=== PATIENT | female | born 1940 | race African-American/Black ===

== ENCOUNTER 2024-10-17 13:27 | Emergency (ER) | payer OTHER, MEDICARE ==
--- OUTSIDE RECORDS SUMMARY | 2024-10-17 13:30 | XMS REPORT | Clinical Summary ---
Author Name Unknown Organization [facility] Address [address] [place] [address] Care Team Providers Care Cake Winder Name Role Phone Brittany Eduardo MD Primary Care Provider [phone] Farhad Corrigan MD Unavailable [phone] Farhad Corrigan MD Unavailable Isis Liang MD Unavailable Brittany Eduardo MD Unavailable [phone] Allergies Active Allergy Reactions Criticality Noted Date Comments Adhesive Tape-Silicones 11/17/1999 Penicillin G 11/17/1999 Penicillins Rash Low 11/30/2015 Medications aspirin 81 mg EC tablet Take 81 mg by mouth daily. Active omega-3 fatty acids-vitamin E (FISH OIL) 1,000 mg cap Take 2 capsules by mouth twice daily. Active sitaGLIPtin-met FORMIN (JANUMET) 50-500 mg per tablet Take 1 tablet by mouth twice daily. Active Ca cmb no.5-[id number]-[id number]- H60-zzta (VITAMIN D-3 WITH ALOE) 120-1,000-10 mg-unit-mg tab Take 1 capsule by mouth daily. Active clopidogrel (PLAVIX) 75 mg tablet Take 1 tablet by mouth daily. 03/18/2016 Active metFORMIN (GLUCOPHAGE) 500 mg tablet Take 1 tablet by mouth daily. 12/29/2015 Active JANUMET 50-500 mg per tablet Take 1 tablet by mouth 2 (two) times a day with meals. 1 03/17/2016 Active amiodarone (PACERONE) 200 mg tablet Take 1 tablet by mouth daily. 3 pm 02/11/2016 Active losartan (COZAAR) 100 mg tablet Take 100 mg by mouth daily. Active atorvastatin (LIPITOR) 40 mg tablet Take 40 mg by mouth. Active nebivolol (BYSTOLIC) 10 mg tablet 20 mg. 06/22/2016 Active Active Problems Problem Noted Date Diagnosed Date Personal history of other malignant neoplasm of skin 01/11/2017 Social History Tobacco Use Types Packs/Day Years Used Date Smoking Tobacco: Never Assessed Comments Unknown Sex and Gender Information Value Date Recorded Sex Assigned at Not on file Legal Sex Female 4:53 PM P[employer]ER [employer] Gender Identity Not on file Sexual Orientation Not on file Plan of Treatment Health Maintenance Due Date Last Done Comments Pneumococcal Vaccine: 50+ Years (1 of - PCV) 99 COVID-19 Vaccine ( - 2023- season) 2024 Influenza Vaccine (#1) 2024 Insurance MEDICARE PART A AND B MEDICARE PART A AND B MEDICARE PART A AND B Care Teams Cake Winder Relationship Specialty Start Date End Date Brittany Eduardo MD [address] [place] [phone] [email or web address] PCP - General 10/08/15 Farhad Corrigan MD [address] [place] [phone] [email or web address] PCP - External Referring 08/12/14 Farhad Corrigan MD [address] [place] [phone] [email or web address] PCP - External Follow Up A 08/12/14 Isis Liang MD [address] [place] [address] [id number] [email or web address] [email or web address] 10/15/15 [place] [address] [place] [phone] [email or web address] [email or web address] 10/15/15
--- NOTE | 2024-10-17 15:59 | RAD REPORT ---
EXAM: CT brain without contrast HISTORY: Headache;Trauma COMPARISON: None TECHNIQUE: Multiple contiguous axial images were obtained and a CT of the brain without contrast. Sag ittal and coronal reformats were performed. FINDINGS: Small volume hyperdense subarachnoid hemorrhage opacifying the left frontal parasagittal sulci. No evidence of hydrocephalus, intraparenchymal hemorrhage, or extra-axial fluid collection. The brain is normal in morphology. The calvarium is intact. Mild to moderate mucosal thickening particularly along the right maxillary a ntrum. mastoid air cells are essentially clear. IMPRESSION: Left frontal parasagittal sulci and subarachnoid hemorrhage. No significant mass effect. THIS REPORT CONTAINS FINDINGS THAT MAY BE CRITICAL TO PATIENT CARE. The findings were verbally commun icated via telephone to FAUSTO Milan on 10/17/2024 3:55 PM. EXAM: CT of the cervical spine without contrast HISTORY: Headache;Trauma COMPARISON: None TECHNIQUE: Multiple contiguous axial images were obtained in a CT of the cervical spine without contr ast. Sagittal and coronal reformats were performed. FINDINGS: The vertebral bodies demonstrate normal height and alignment. No evidence of acute fracture or subluxation.. No degenerative changes are present. No prevertebral soft tissue swelling is seen. The posterior facets are well aligned. Normal alignment of the skull base with the cervical spine is seen. The lung apices are unremarkable. Expansile heterogeneous 2.5 cm hypodense nodule or cyst involving the mid to lower aspect of the left thyroid lobe, not fully characterized. Incidentally noted bilateral cervical ribs. IMPRESSION: No evidence of acute osseous abnormality of the cervical spine. At least 2.5 cm hypodense nodule or cyst involving the left thyroid lobe, may deserve additional ethan acterization by dedicated thyroid ultrasound if not previously performed.
[2024-10-17 16:18] LABS: Absolute Lymphocytes (CBC) 0.7 K/uL (0.7-4.9); Absolute Monocytes 0.3 K/uL (0.1-1.3); Absolute Neutrophil 4.8 K/uL (1.8-8.0); Basophils % 0.3 % (0-1.3); Eosinophils % 0.2 % (0-4.4); Hemoglobin 12.9 g/dL (12.0-15.0); Lymphocytes % 12.2 % (15.3-44.8); MCH 29.1 pg (27.0-35.0); MCHC 34.9 g/dL (32.0-36.0); MCV 83.3 fL (80-100); MPV 7.1 fL (7.6-11.3); Monocytes % 4.7 % (3.3-12.3); Neutrophils % 82.6 % (41.7-73.7); Nucleated Red Blood Cells % 0.1 % (0-0); Platelets 233 thou/uL (152-406); RBC Red Blood Cell Count 4.44 M/uL (3.86-4.86); Red Cell Distribution Width 12.9 % (12.1-15.2)
[2024-10-17] MEDS ORDERED: LEVETIRACETAM 500 MG/5 ML VIAL IV ONE (16:19)
[2024-10-17] MEDS ORDERED: NA CHLORIDE 0.9% 100 ML ONE (16:19)
--- NOTE | 2024-10-17 16:29 | ER ---
Nurse's Notes [facility] Name: Adriane Corrigan Age: 84 yrs Sex: Female : 1940 Arrival Date: 10/17/2024 Time: 13:27 Bed 12 Private MD: Diagnosis: Traumatic subarachnoid hemorrhage Presentation: 10/17 13:51 Coronavirus screen: Client denies travel out of the [place] in the last 14 days. Ebola ll1 Screen: Patient denies travel to an Ebola-affected area in the 21 days before illness onset. Mechanism of Injury: resulted from a fall. Initial Sepsis Screen: Does the patient meet any 2 criteria? No. Patient's initial sepsis screen is negative. Does the patient have a suspected source of infection? No. Patient's initial sepsis screen is negative. Risk Assessment: Do you want to hurt yourself or someone else? Patient reports no desire to harm self or others. 13:51 Method Of Arrival: Ambulatory 1 13:51 Acuity: PETER 3 ll1 13:53 Chief complaint: Patient states: Hit head and posterior L arm knocking down a 2x4 from ll1 carport today. 16:30 Onset of symptoms was October 17, 2024. ll1 Triage Assessment: 13:51 General: Appears uncomfortable, Behavior is calm, cooperative, appropriate for age. ll1 Pain: Complains of pain in L posterior shoulder. Neuro: Reports headache. Musculoskeletal: Reports pain in L posterior shoulder. Injury Description: Bruise sustained to L posterior shoulder. 16:27 Neuro: Level of Consciousness is awake, alert, obeys commands, Oriented to person, ll1 place, time, situation, Appropriate for age Sane Rn are equal bilaterally Moves all extremities. Full function. Historical: - Allergies: 13:54 PENICILLINS; ll1 - PMHx: 13:54 Hypertensive disorder; Diabetes mellitus; Hypercholesterolemia; vertigo; stroke; ll1 - PSHx: 13:54 Cholecystectomy; hysterectomy; endarectomy R; ll1 - Immunization history:: Adult Immunizations up to date. - Infectious Disease History:: Denies. - Social history:: Smoking status: Patient denies any tobacco usage or history of. Screenin:10 [facility] ED Fall Risk Assessment (Adult) History of falling in the last 3 months, ll1 including since admission No falls in past 3 months (0 pts) Confusion or Disorientation No (0 pts) Intoxicated or Sedated No (0 pts) Impaired Gait No (0 pts) Mobility Assist Device Used No (0 pt) Altered Elimination No (0 pt) Score/Fall Risk Level 0 - 2 = Low Risk Maintained a safe environment, Hourly rounding (assess needs \T\ fall precautionary measures) done. Abuse screen: Denies threats or abuse. Nutritional screening: No deficits noted. Tuberculosis screening: No symptoms or risk factors identified. Assessment: 14:22 Reassessment: No changes from previously documented assessment. Patient and/or family ll1 updated on plan of care and expected duration. Pain level reassessed. Patient is alert, oriented x 3, equal unlabored respirations, skin warm/dry/pink. 16:10 Reassessment: No changes from previously documented assessment. Patient and/or family ll1 updated on plan of care and expected duration. Pain level reassessed. Patient is alert, oriented x 3, equal unlabored respirations, skin warm/dry/pink. 16:30 Reassessment: No changes from previously documented assessment. Patient and/or family ll1 updated on plan of care and expected duration. Pain level reassessed. Patient is alert, oriented x 3, equal unlabored respirations, skin warm/dry/pink. 17:03 Reassessment: No changes from previously documented assessment. Patient and/or family ll1 updated on plan of care and expected duration. Pain level reassessed. Patient is alert, oriented x 3, equal unlabored respirations, skin warm/dry/pink. Vital Signs: 13:53 BP 169 / 65; Pulse 86; Resp 17; Temp 98.4; Pulse Ox 100% ; Weight 54.43 kg; Height 4 ll1 ft. 11 in. ; Pain 10/10; 16:17 BP 178 / 74; Pulse 89; Resp 16; Pulse Ox 100% ; ll1 17:03 BP 152 / 69; Pulse 93; Resp 16; Pulse Ox 100% on R/A; ll1 13:53 Body Mass Index 24.24 (54.43 kg, 149.86 cm) 1 13:53 Pain Scale: Adult ll1 Butler Coma Score: 13:51 Eye Response: spontaneous(4). Motor Response: obeys commands(6). Verbal Response: ll1 oriented(5). Total: 15. 15:22 Eye Response: spontaneous(4). Motor Response: obeys commands(6). Verbal Response: kb oriented(5). Total: 15. ED Course: 13:31 Patient arrived in ED. im 13:32 Vidya Berrios FNP-C [facility]. kb 13:32 Prasanth Grimes MD is Attending Physician. kb 13:51 Arm band placed on. ll1 13:52 Triage completed. ll1 14:22 Patient placed in an exam room, on a stretcher. ll1 14:25 CT Head C Spine In Process Unspecified. EDMS 15:07 Humerus Left XRAY In Process Unspecified. EDMS 16:11 Patient has correct armband on for positive identification. Bed in low position. Call ll1 light in reach. Provided Education on: ER procedures and process. Client placed on continuous cardiac and pulse oximetry monitoring. NIBP monitoring applied. 16:17 Carson Srinivasan, JACKIE is Primary Nurse. ll1 16:18 Initial lab(s) drawn, by me, sent to lab. Missed attempt(s): 22 gauge in right ll1 antecubital area. Bleeding controlled, band aid applied, catheter tip intact. 16:20 Inserted saline lock: 22 gauge in left antecubital area, using aseptic technique. ll1 Flushed with 10 mL NS. 16:26 No provider procedures requiring assistance completed. ll1 16:30 Patient transferred, IV remains in place. ll1 Administered Medications: 16:25 Drug: Keppra IV 1000 mg IV at calculated rate once Route: IV; Rate: calculated rate; ll1 Site: left antecubital; 17:04 Follow up: Response: No adverse reaction; IV Status: Completed infusion; IV Intake: ll1 1000ml Medication: 16:11 VIS not applicable for this client. ll1 Intake: 17:04 IV: 1000ml; Total: 1000ml. ll1 Outcome: 16:27 Transferred by ground EMS to [facility], Transfer form completed. Note: marcelina Hernández RN in [place] ED 16:27 Condition: stable 16:27 Instructed on the need for transfer, 16:28 ER care complete, transfer ordered by . kb 17:12 Patient left the ED. ld1 Signatures: Dispatcher [employer] EDMS Vidya Berrios FNP-C SUPPLY CHAIN BUSINESS ANALYST-Ckb Carson Srinivasan, RN RN ll1 Karo Avalos RN RN ld1 Paz Humphrey Corrections: (The following items were deleted from the chart) 13:58 13:53 BP 169 / 65; Pulse 86bpm; Resp 17bpm; Pulse Ox 100%; 54.43 kg; Height 4 ft. 11 ll1 in.; BMI: 24.2; Pain 10, Adult; ll1
--- NOTE | 2024-10-17 16:29 | EDPHYS ---
Physician Documentation [facility] Name: Adriane Corrigan Age: 84 yrs Sex: Female : 1940 Arrival Date: 10/17/2024 Time: 13:27 Bed 12 Private MD: ED Physician Prasanth Grimes HPI: 10/17 15:20 This 84 yrs old Black Female presents to ER via Ambulatory with complaints of Head kb Injury-Adult. 15:20 Pt is an 84 year old female who presents after falling just before 1130 today. States kb she was swinging a 2x4 trying to take down her carport when she lost her balance and fell. Reports hitting back of head on the concrete edge of her flowerbed. Reports LOC that was for a short time. Takes xarelto and aspirin. . Historical: - Allergies: 13:54 PENICILLINS; ll1 - PMHx: 13:54 Hypertensive disorder; Diabetes mellitus; Hypercholesterolemia; vertigo; stroke; ll1 - PSHx: 13:54 Cholecystectomy; hysterectomy; endarectomy R; ll1 - Immunization history:: Adult Immunizations up to date. - Infectious Disease History:: Denies. - Social history:: Smoking status: Patient denies any tobacco usage or history of. ROS: 15:19 Constitutional: As per HPI kb Exam: 15:19 Constitutional: This is a well developed, well nourished patient who is awake, alert, kb and in no acute distress. Eyes: Pupils equal round and reactive to light, extra-ocular motions intact. Lids and lashes normal. Conjunctiva and sclera are non-icteric and not injected. Cornea within normal limits. Periorbital areas with no swelling, redness, or edema. ENT: Moist Mucous membranes Cardiovascular: Regular rate Respiratory: Respirations even and unlabored. No increased work of breathing. Talking in full sentences Back: No spinal tenderness. No costovertebral tenderness. Full range of motion. Skin: Warm, dry with normal turgor. Normal color. Neuro: Awake and alert, GCS 15, oriented to person, place, time, and situation. 15:19 Head/face: Noted is no obvious of injury or deformity except abrasion(s), that are mild, of the left occipital area, hematoma, that is mild, of the left occipital area, 15:19 Musculoskeletal/extremity: Extremities: grossly normal except: noted in the posterior aspect of left shoulder: abrasion, pain, ROM: intact in all extremities, Circulation is intact in all extremities. Sensation intact. Weight bearing: able to fully bear weight, Vital Signs: 13:53 BP 169 / 65; Pulse 86; Resp 17; Temp 98.4; Pulse Ox 100% ; Weight 54.43 kg; Height 4 ll1 ft. 11 in. ; Pain 10/10; 16:17 BP 178 / 74; Pulse 89; Resp 16; Pulse Ox 100% ; ll1 17:03 BP 152 / 69; Pulse 93; Resp 16; Pulse Ox 100% on R/A; ll1 13:53 Body Mass Index 24.24 (54.43 kg, 149.86 cm) ll1 13:53 Pain Scale: Adult ll1 Leonard Coma Score: 13:51 Eye Response: spontaneous(4). Motor Response: obeys commands(6). Verbal Response: ll1 oriented(5). Total: 15. 15:22 Eye Response: spontaneous(4). Motor Response: obeys commands(6). Verbal Response: kb oriented(5). Total: 15. MDM: 13:32 Medical Screening Exam initiated kb 15:22 Data reviewed: vital signs, nurses notes. kb 16:28 Differential diagnosis: Contusion of Hematoma on Intracranial bleed- Concussion kb cerebral contusion. Consideration of Admission/Observation Escalation of care including admission/observation considered. pt will be transferred to [place] for trauma. Management of patient was discussed with the following: Neurosurgeon at [facility] accepts pt for transfer under Dr Cortes. Historians other than the Patient: Family Member: sister. Counseling: I had a detailed discussion with the patient and/or guardian regarding the historical points, exam findings, and any diagnostic results supporting the discharge/admit diagnosis, lab results, radiology results, the need to transfer to another facility, [facility] does not immediately have the required specialist. 10/17 15:55 Order name: CBC with Diff; Complete Time: 16:27 kb 10/17 15:55 Order name: CMP; Complete Time: 16:40 kb 10/17 15:55 Order name: Protime (+inr); Complete Time: 16:38 kb 10/17 15:55 Order name: Ptt, Activated; Complete Time: 16:38 kb 10/17 13:53 Order name: CT Head C Spine; Complete Time: 16:00 kb 10/17 14:30 Order name: Humerus Left XRAY; Complete Time: 17:01 kb 10/17 15:55 Order name: IV Start; Complete Time: 16:02 kb Administered Medications: 16:25 Drug: Keppra IV 1000 mg IV at calculated rate once Route: IV; Rate: calculated rate; ll1 Site: left antecubital; 17:04 Follow up: Response: No adverse reaction; IV Status: Completed infusion; IV Intake: ll1 1000ml Disposition: 17:32 Co-signature as Attending Physician, Prasanth Grimes MD I reviewed the patient's care rt provided by the Advanced Practice Provider and agree with the diagnosis and treatment plan. Disposition Summary: 10/17/24 16:28 Transfer Ordered Notes: Transfer Location: [facility] kb Reason: Higher level of care kb Condition: Stable kb Problem: new kb Symptoms: are unchanged kb Accepting Physician: Dr Cortes(10/17/24 17:12) ld1 Diagnosis - Traumatic subarachnoid hemorrhage kb Forms: - Medication Reconciliation Form kb - SBAR form kb Critical care time excluding procedures: 16:35 Critical care time: Bedside Care: 10 minutes, Consultation: 10 minutes, Family kb Intervention: 10 minutes. Total time: 30 minutes Signatures: Dispatcher [employer] EDVidya Young, SOA ENGINEER-C SOA ENGINEER-Ckb Carson Srinivasan, RN RN ll1 Karo Avalos RN RN ld1 Prasanth Grimes MD MD rt Corrections: (The following items were deleted from the chart) 15:56 15:56 CBC+H.LAB.BRZ ordered. EDMS EDMS 15:56 15:56 COMPREHENSIVE METABOLIC PANEL+C.LAB.BRZ ordered. EDMS EDMS 15:56 15:56 PROTIME (+INR)+COAG.LAB.BRZ ordered. EDMS EDMS 15:56 15:56 PTT, ACTIVATED+COAG.LAB.BRZ ordered. EDMS EDMS 17:12 16:28 Dr Cortes kb ld1
[2024-10-17 16:35] LABS: PT Prothrombin Time 15.4 SECONDS (10-13.0); PTT, Activated Partial Thromb 34.9 SECONDS (27.2-37.4); Protime INR 1.37
[2024-10-17 16:39] LABS: Albumin 3.7 g/dL (3.4-5.0); Albumin/Globulin Ratio 0.9 (1.1-1.8); Anion Gap 10.3 mEq/L (5.0-15.0); Bilirubin Total 0.6 mg/dL (0.2-1.0); Globulin 4.1 g/dL (2.3-3.5); Potassium 3.3 mEq/L (3.5-5.1); Protein, Total 7.8 g/dL (6.4-8.2)
--- NOTE | 2024-10-17 16:51 | RAD REPORT ---
EXAMINATION: XR LEFT HUMERUS HISTORY: PAIN TECHNIQUE: Multiple views of the left humerus were obtained. COMPARISON: None FINDINGS: No bone or joint abnormality detected. No focal osseous lesion. Implantable electronic mark ce along the distal upper arm.
[2024-10-17 17:32] VITALS: TEMP 98.4; O2SAT 100
[2024-10-17 17:35] VITALS: BP 152/69
== END 2024-10-17 17:12 | disposition short-term general hospital (02) ==
LOC: ER 13:27
DX: S06.6X0A Traumatic subarachnoid hemorrhage without loss of consciousness, initial encounter (principal); S40.212A Abrasion of left shoulder, initial encounter; W18.30XA Fall on same level, unspecified, initial encounter; Z79.01 Long term (current) use of anticoagulants; Z79.82 Long term (current) use of aspirin
CPT/HCPCS: 85025; 36415; 85610; 85730; 80053; 70450; 72125; 73060; J1953; 96365; 99285